=== PATIENT | female | born 1985 | race African-American/Black ===

== ENCOUNTER 2017-10-28 13:34 | Inpatient (IN) ==
[2017-10-28] MEDS ORDERED: cefTRIAXone 250 MG VIAL IV STA (14:03)
[2017-10-28] MEDS ORDERED: MORPHINE 2 MG/1 ML SYRINGE IV STA (14:04)
[2017-10-28] MEDS ORDERED: ONDANSETRON 4 MG/2 ML VIAL IV ONE (14:04)
[2017-10-28] MEDS ORDERED: cefTRIAXone 1,000 MG VIAL ONE (14:08)
[2017-10-28] MEDS ORDERED: ONDANSETRON 4 MG/2 ML VIAL ONE (14:08)
[2017-10-28] MEDS ORDERED: MORPHINE 10 MG/1 ML VIAL ONE (14:09)
[2017-10-28 15:25] LABS: Basophils % 0.1 % (0.0-0.8); Eosinophils % 0.2 % (0.00-10.9); Hematocrit 35.4 VOL% (35.7-47.0); Immature Granulocytes % 0.5 %; Immature Granulocytes Absolute 0.06 #; Lymphocytes % 8.3 % (21.3-54.2); Mean Corpuscular HGB Conc 31.1 GM/DL (32-36); Mean Corpuscular Hemoglobin 22 PG (27-34); Mean Corpuscular Volume 71.7 FL (87-102); Mean Platelet Volume 10.8 FL (9.6-12.0); Monocytes # 0.6 10*3/uL (0.11-0.8); Monocytes % 5.1 % (1.7-12.7); Neutrophils # 10.5 10*3/uL (1.4-7.4); Neutrophils % 85.8 % (38.7-73.9); Platelet Count 404 T/CUMM (130-400); Red Blood Count 4.94 MC/CUMM (3.8-5.5); Red Cell Distribution Width 16.3 % (9.3-17.3); White Blood Count 12.3 T/CUMM (4-12)
[2017-10-28] MEDS ORDERED: ONDANSETRON 4 MG/2 ML VIAL IV PRN (15:41)
[2017-10-28] MEDS ORDERED: ZALEPLON 5 MG CAPSULE PO PRN (15:41)
[2017-10-28] MEDS ORDERED: BISACODYL 5 MG TABLET PO PRN (15:41)
[2017-10-28 15:48] LABS: Calcium 8.8 MG/DL (8.5-10.1); Osmolality,Calculated 276.4 MOS/KG (273-304); Potassium 3.6 MMOL/L (3.5-5.1)
[2017-10-28] MEDS ORDERED: AMPICILLIN/SULBACTAM 1,500 MG VIAL ONE (17:58)
[2017-10-28] MEDS: AMPICILLIN/SULBACTAM 1,500 MG in SODIUM CHLORIDE 0.9% 100 ML IV SCH (18:14)
[2017-10-28] MEDS: ENOXAPARIN 40 MG/0.4 ML SYRINGE SUBCUT SCH (20:36)
[2017-10-28] MEDS: MORPHINE 2 MG/1 ML SYRINGE IV PRN (20:36)
[2017-10-28] MEDS: DEXTROSE 5% NACL 0.45% 1,000 ML IV SCH (20:39)
[2017-10-28] MEDS: CLINDAMYCIN INJ 900 MG in PREMIX 1 EACH IV SCH (21:22)
[2017-10-29] MEDS: AMPICILLIN/SULBACTAM 1,500 MG in SODIUM CHLORIDE 0.9% 100 ML IV SCH ×3 (00:24→18:24)
[2017-10-29] MEDS ORDERED: ETOMIDATE 20 MG/10 ML VIAL IV ONE (00:26)
[2017-10-29] MEDS ORDERED: fentaNYL 100 MCG/2 ML VIAL IV ONE ×2 (00:26→01:29)
[2017-10-29] MEDS ORDERED: SUCCINYLCHOLINE 200 MG/10 ML VIAL IV ONE (00:27)
[2017-10-29] MEDS: DEXTROSE 5% NACL 0.45% 1,000 ML IV SCH ×4 (00:27→18:25)
[2017-10-29] MEDS ORDERED: PROPOFOL 1,000 MG/100 ML BOTTLE IV ONE (00:49)
[2017-10-29] MEDS: PROPOFOL 1,000 MG/100 ML BOTTLE IV SCH ×5 (00:51→13:51)
[2017-10-29] MEDS ORDERED: MIDAZOLAM 2 MG/2 ML VIAL IV ONE (00:58)
[2017-10-29] MEDS ORDERED: MIDAZOLAM 10 MG/2 ML VIAL ONE (00:59)
[2017-10-29] MEDS ORDERED: methylPREDNISolone SOD SUC 125 MG/2 ML VIAL IV ONE (01:29)
[2017-10-29] MEDS ORDERED: diphenhydrAMINE 50 MG/1 ML VIAL IV ONE (01:29)
[2017-10-29] MEDS ORDERED: LINEZOLID INJ 600 MG in PREMIX 1 EACH IV SCH (01:29)
[2017-10-29] MEDS ORDERED: ALBUTEROL/IPRATROPIUM 3 ML NEB RESP TX PRN (01:29)
[2017-10-29] MEDS: ACETAMINOPHEN 325 MG TABLET PO PRN (02:23)
[2017-10-29] MEDS: fentaNYL INJ 1,250 MCG in SODIUM CHLORIDE 0.9% 225 ML IV SCH ×2 (02:37→18:34)
[2017-10-29] MEDS: ALBUTEROL/IPRATROPIUM 3 ML NEB RESP TX SCH ×4 (03:55→19:38)
[2017-10-29 04:43] LABS: ABG Base Excess -0.5 MMOL/L (-2.5-2.5); ABG Oxygen Saturation 99.9 % (95-100); ABG PCO2 35.9 MM HG (35-48); ABG PH 7.422 (7.35-7.45); ABG TCO2 20.1 MMOL/L (23-27)
[2017-10-29] MEDS ORDERED: methylPREDNISolone SOD SUC 40 MG/1 ML VIAL IV SCH (05:00)
[2017-10-29 05:39] LABS: Basophils % 0.1 % (0.0-0.8); Eosinophils % 0.1 % (0.00-10.9); Hematocrit 33.2 VOL% (35.7-47.0); Hemoglobin 10.2 GM/DL (12.0-16.0); Immature Granulocytes % 0.5 %; Immature Granulocytes Absolute 0.07 #; Lymphocytes # 0.8 10*3/uL (1.4-4.0); Lymphocytes % 5.6 % (21.3-54.2); Mean Corpuscular HGB Conc 30.7 GM/DL (32-36); Mean Corpuscular Hemoglobin 22 PG (27-34); Mean Corpuscular Volume 70.8 FL (87-102); Mean Platelet Volume 10.6 FL (9.6-12.0); Monocytes # 0.5 10*3/uL (0.11-0.8); Monocytes % 3.5 % (1.7-12.7); Neutrophils # 12.5 10*3/uL (1.4-7.4); Neutrophils % 90.2 % (38.7-73.9); Platelet Count 374 T/CUMM (130-400); Red Blood Count 4.69 MC/CUMM (3.8-5.5); Red Cell Distribution Width 16.1 % (9.3-17.3); White Blood Count 13.9 T/CUMM (4-12)
[2017-10-29 05:57] LABS: Albumin 3.1 G/DL (3.4-5.0); Bilirubin,Total 1.5 MG/DL (0.2-1.0); Calcium 8.6 MG/DL (8.5-10.1); Magnesium 2.1 MG/DL (1.8-2.4); Osmolality,Calculated 277.7 MOS/KG (273-304); Potassium 3.7 MMOL/L (3.5-5.1); Total Protein 6.3 G/DL (6.4-8.3)
[2017-10-29 06:15] LABS: Elliptocytes Few; Giant Platelets Few; Hypochromasia 1+; Platelet Estimate Adequate
[2017-10-29 06:44] LABS: Lactic Acid 0.8 MMOL/L (0.4-2.0)
[2017-10-29] MEDS: CLINDAMYCIN INJ 900 MG in PREMIX 1 EACH IV SCH ×3 (06:56→22:06)
[2017-10-29] MEDS ORDERED: DEXTROSE 50% 25 GM/50 ML VIAL IV PRN (08:07)
[2017-10-29] MEDS ORDERED: GLUCAGON 1 MG VIAL IM PRN (08:07)
[2017-10-29] MEDS: INSULIN REGULAR 100 UNIT/ML SUBCUT SCH ×2 (11:30→18:25)
[2017-10-29] MEDS: DEXAMETHASONE 4 MG/1 ML VIAL IV SCH ×2 (11:31→18:25)
[2017-10-29] MEDS ORDERED: LIDOCAINE 2%/EPI 20 ML VIAL ONE (19:55)
[2017-10-29] MEDS ORDERED: CHLORHEXIDINE 0.12% ORAL RINSE 60 ML BOTTLE SWISH/SPIT ONE (19:55)
[2017-10-29] MEDS ORDERED: MIDAZOLAM 100 MG in SODIUM CHLORIDE 0.9% 80 ML IV SCH (20:30)
[2017-10-29] MEDS ORDERED: MIDAZOLAM 2 MG/2 ML VIAL ONE (20:34)
[2017-10-29] MEDS ORDERED: SEVOFLURANE 1 UNIT/15 MINUTE INH ONE (20:34)
[2017-10-29] MEDS: ENOXAPARIN 40 MG/0.4 ML SYRINGE SUBCUT SCH (22:06)
[2017-10-30] MEDS: ALBUTEROL/IPRATROPIUM 3 ML NEB RESP TX SCH ×4 (00:43→21:00)
[2017-10-30] MEDS: DEXTROSE 5% NACL 0.45% 1,000 ML IV SCH ×2 (04:13→12:34)
[2017-10-30] MEDS: INSULIN REGULAR 100 UNIT/ML SUBCUT SCH ×4 (04:14→17:55)
[2017-10-30] MEDS: AMPICILLIN/SULBACTAM 1,500 MG in SODIUM CHLORIDE 0.9% 100 ML IV SCH ×3 (04:18→20:33)
[2017-10-30 04:21] LABS: Allen Test Positive; Pt O2 Delivery Device Ventilator
[2017-10-30 04:22] LABS: ABG Base Excess -0.6 MMOL/L (-2.5-2.5); ABG HCO3 23.9 MMOL/L (20-26); ABG PCO2 34.4 MM HG (35-48); ABG PH 7.436 (7.35-7.45)
[2017-10-30] MEDS: DEXAMETHASONE 4 MG/1 ML VIAL IV SCH ×2 (04:56→06:39)
[2017-10-30 05:09] LABS: Basophils % 0.1 % (0.0-0.8); Hematocrit 31.4 VOL% (35.7-47.0); Hemoglobin 9.9 GM/DL (12.0-16.0); Immature Granulocytes % 1.1 %; Immature Granulocytes Absolute 0.16 #; Lymphocytes # 0.7 10*3/uL (1.4-4.0); Lymphocytes % 4.8 % (21.3-54.2); Mean Corpuscular HGB Conc 31.5 GM/DL (32-36); Mean Corpuscular Hemoglobin 22 PG (27-34); Mean Corpuscular Volume 69.5 FL (87-102); Mean Platelet Volume 11.4 FL (9.6-12.0); Monocytes # 0.8 10*3/uL (0.11-0.8); Monocytes % 5.4 % (1.7-12.7); Neutrophils # 12.8 10*3/uL (1.4-7.4); Neutrophils % 88.6 % (38.7-73.9); Platelet Count 411 T/CUMM (130-400); Red Blood Count 4.52 MC/CUMM (3.8-5.5); Red Cell Distribution Width 16.6 % (9.3-17.3); White Blood Count 14.5 T/CUMM (4-12)
[2017-10-30 05:42] LABS: Calcium 8.6 MG/DL (8.5-10.1); Osmolality,Calculated 282.1 MOS/KG (273-304); Potassium 4.1 MMOL/L (3.5-5.1)
[2017-10-30 05:48] LABS: Burr Cells Slight; Giant Platelets Few; Hypochromasia 1+; Lymphocytes 10 % (20-55); Ovalocytes Slight; Platelet Estimate Increased; Segmented Neutrophils 87 % (50-85); Total Cells Counted 100
[2017-10-30] MEDS: DORNASE ALFA 2.5 MG/2.5 ML VIAL RESP TX SCH ×3 (06:18→21:00)
[2017-10-30] MEDS: CLINDAMYCIN INJ 900 MG in PREMIX 1 EACH IV SCH ×3 (06:38→21:47)
[2017-10-30] MEDS: MORPHINE 2 MG/1 ML SYRINGE IV PRN (10:09)
[2017-10-30 13:17] LABS: ABG HCO3 24.5 MMOL/L (20-26); ABG Oxygen Saturation 98.6 % (95-100); ABG PCO2 38.2 MM HG (35-48); ABG PH 7.413 (7.35-7.45); ABG TCO2 22.2 MMOL/L (23-27)
[2017-10-30] MEDS: fentaNYL INJ 1,250 MCG in SODIUM CHLORIDE 0.9% 225 ML IV SCH (14:07)
[2017-10-30] MEDS: ENOXAPARIN 40 MG/0.4 ML SYRINGE SUBCUT SCH (20:33)
[2017-10-31] MEDS: INSULIN REGULAR 100 UNIT/ML SUBCUT SCH ×5 (00:33→23:30)
[2017-10-31] MEDS: MORPHINE 2 MG/1 ML SYRINGE IV PRN (00:55)
[2017-10-31] MEDS: DEXTROSE 5% NACL 0.45% 1,000 ML IV SCH ×2 (01:04)
[2017-10-31 05:10] LABS: Basophils % 0.1 % (0.0-0.8); Hematocrit 30.5 VOL% (35.7-47.0); Hemoglobin 9.5 GM/DL (12.0-16.0); Immature Granulocytes % 0.9 %; Immature Granulocytes Absolute 0.12 #; Lymphocytes # 2.4 10*3/uL (1.4-4.0); Lymphocytes % 17.4 % (21.3-54.2); Mean Corpuscular HGB Conc 31.1 GM/DL (32-36); Mean Corpuscular Hemoglobin 22 PG (27-34); Mean Corpuscular Volume 70.6 FL (87-102); Mean Platelet Volume 11.5 FL (9.6-12.0); Monocytes # 0.7 10*3/uL (0.11-0.8); Monocytes % 4.9 % (1.7-12.7); Neutrophils # 10.6 10*3/uL (1.4-7.4); Neutrophils % 76.7 % (38.7-73.9); Platelet Count 439 T/CUMM (130-400); Red Blood Count 4.32 MC/CUMM (3.8-5.5); Red Cell Distribution Width 16.1 % (9.3-17.3); White Blood Count 13.9 T/CUMM (4-12)
[2017-10-31] MEDS: AMPICILLIN/SULBACTAM 1,500 MG in SODIUM CHLORIDE 0.9% 100 ML IV SCH ×3 (05:21→20:32)
[2017-10-31 05:39] LABS: Calcium 8.1 MG/DL (8.5-10.1); Osmolality,Calculated 282.1 MOS/KG (273-304); Potassium 3.8 MMOL/L (3.5-5.1)
[2017-10-31 06:19] LABS: Hypochromasia 1+; Lymphocytes 14 % (20-55); Segmented Neutrophils 83 % (50-85); Total Cells Counted 100
[2017-10-31 06:20] LABS: Microcytosis 1+; Ovalocytes Slight; Platelet Estimate Increased
[2017-10-31] MEDS: CLINDAMYCIN INJ 900 MG in PREMIX 1 EACH IV SCH ×3 (07:18→21:42)
[2017-10-31] MEDS: DORNASE ALFA 2.5 MG/2.5 ML VIAL RESP TX SCH ×2 (07:19→20:20)
[2017-10-31] MEDS: ALBUTEROL/IPRATROPIUM 3 ML NEB RESP TX SCH (07:19)
[2017-10-31] MEDS: ACETAMINOPHEN 325 MG TABLET PO PRN (16:55)
[2017-10-31] MEDS: ENOXAPARIN 40 MG/0.4 ML SYRINGE SUBCUT SCH (20:35)
[2017-11-01] MEDS: AMPICILLIN/SULBACTAM 1,500 MG in SODIUM CHLORIDE 0.9% 100 ML IV SCH (03:06)
[2017-11-01 04:58] LABS: Basophils % 0.1 % (0.0-0.8); Eosinophils # 0.1 10*3/uL (0.0-0.87); Eosinophils % 0.8 % (0.00-10.9); Hematocrit 29.9 VOL% (35.7-47.0); Hemoglobin 9.3 GM/DL (12.0-16.0); Immature Granulocytes % 1.2 %; Immature Granulocytes Absolute 0.12 #; Lymphocytes # 3.4 10*3/uL (1.4-4.0); Lymphocytes % 35.1 % (21.3-54.2); Mean Corpuscular HGB Conc 31.1 GM/DL (32-36); Mean Corpuscular Hemoglobin 22 PG (27-34); Mean Corpuscular Volume 70.7 FL (87-102); Mean Platelet Volume 11.2 FL (9.6-12.0); Monocytes # 0.6 10*3/uL (0.11-0.8); Monocytes % 5.8 % (1.7-12.7); Neutrophils # 5.5 10*3/uL (1.4-7.4); Platelet Count 435 T/CUMM (130-400); Red Blood Count 4.23 MC/CUMM (3.8-5.5); Red Cell Distribution Width 16.1 % (9.3-17.3); White Blood Count 9.7 T/CUMM (4-12)
[2017-11-01] MEDS: CLINDAMYCIN INJ 900 MG in PREMIX 1 EACH IV SCH (05:18)
[2017-11-01] MEDS: INSULIN REGULAR 100 UNIT/ML SUBCUT SCH (06:17)
[2017-11-01] MEDS: DORNASE ALFA 2.5 MG/2.5 ML VIAL RESP TX SCH (08:37)
[2017-11-01 08:40] VITALS: BP 139/100
== END 2017-11-01 11:34 | disposition home or self-care (01) | DRG 137 ==
LOC: N.ED 13:34 → SUATTDRO 15:41 → N.EDINP 15:41 → N.5E 18:57 → N.CC 10-29 00:37 → N.3E 10-31 09:39
PROVIDERS: ADMIT Internal Medicine Cardiovascular Disease; ATTEND Internal Medicine

== ENCOUNTER 2020-11-18 11:18 | Inpatient (IN) ==
[2020-11-18] MEDS ORDERED: SODIUM CHLORIDE 0.9% 1,000 ML IV STA (11:47)
[2020-11-18 11:55] LABS: Basophils % 0.3 % (0.0-0.8); Eosinophils # 0.1 10*3/uL (0.0-0.87); Eosinophils % 1.9 % (0.00-10.9); Hematocrit 43.3 VOL% (35.7-47.0); Hemoglobin 13.3 GM/DL (12.0-16.0); Immature Granulocytes % 0.4 %; Immature Granulocytes Absolute 0.03 #; Lymphocytes # 1.6 10*3/uL (1.4-4.0); Lymphocytes % 21.6 % (21.3-54.2); Mean Corpuscular HGB Conc 30.7 GM/DL (32-36); Mean Corpuscular Volume 74.3 FL (87-102); Mean Platelet Volume 11.9 FL (9.6-12.0); Monocytes % 4.5 % (1.7-12.7); Neutrophils % 71.3 % (38.7-73.9); Platelet Count 420 T/CUMM (130-400); Red Blood Count 5.83 MC/CUMM (3.8-5.5); Red Cell Distribution Width 16.1 % (9.3-17.3); White Blood Count 7.5 T/CUMM (4-12)
[2020-11-18 12:23] LABS: Albumin 3.5 G/DL (3.4-5.0); Bilirubin,Total 0.4 MG/DL (0.2-1.0); Calcium 9.1 MG/DL (8.5-10.1); Osmolality,Calculated 278.5 MOS/KG (273-304); Potassium 4.1 MMOL/L (3.5-5.1); Total Protein 7.6 G/DL (6.4-8.3)
[2020-11-18 12:34] LABS: Troponin I 0.067 NG/ML (0.00-0.045)
[2020-11-18] MEDS ORDERED: HEPARIN 1,000 UNIT/1 ML VIAL IV STA (13:59)
[2020-11-18] MEDS ORDERED: HEPARIN 5,000 UNIT/1 ML VIAL IV STA (14:11)
[2020-11-18 14:15] LABS: PT Patient Result 11.2 SECS (9.8-11.9)
[2020-11-18] MEDS ORDERED: MAGNESIUM SULF RIDER 2 GM in PREMIX 1 EACH IV PRN (14:23)
[2020-11-18] MEDS ORDERED: POTASSIUM CHLORIDE RIDER 10 MEQ in PREMIX 1 EACH IV PRN (14:23)
[2020-11-18] MEDS ORDERED: DIAZEPAM 5 MG TABLET PO ONE (14:23)
[2020-11-18] MEDS ORDERED: diphenhydrAMINE CAP 25 MG CAPSULE PO ONE (14:23)
[2020-11-18] MEDS ORDERED: LIDOCAINE 1% 20 ML VIAL ONE ×2 (16:38→17:02)
[2020-11-18] MEDS ORDERED: HEPARIN/NACL 0.9% 2 UNITS/ML 500 ML IV ONE ×2 (16:38→17:02)
[2020-11-18] MEDS ORDERED: MIDAZOLAM 2 MG/2 ML VIAL ONE (16:38)
[2020-11-18] MEDS ORDERED: fentaNYL 100 MCG/2 ML VIAL ONE (16:38)
[2020-11-18] MEDS ORDERED: HEPARIN 5,000 UNIT/1 ML VIAL ONE (17:13)
[2020-11-18] MEDS ORDERED: DEXTROSE 50% 25 GM/50 ML VIAL IV PRN ×2 (17:50→18:07)
[2020-11-18] MEDS ORDERED: GLUCAGON 1 MG VIAL IM PRN ×2 (17:50→18:07)
[2020-11-18] MEDS ORDERED: ACETAMINOPHEN 325 MG TABLET PO PRN (17:50)
[2020-11-18] MEDS: RIVAROXABAN 15 MG TABLET PO SCH (18:22)
[2020-11-18] MEDS ORDERED: ZALEPLON 5 MG CAPSULE PO PRN (20:23)
[2020-11-18] MEDS: INSULIN LISPRO 100 UNIT/ML SUBCUT SCH (21:23)
[2020-11-18] MEDS: HYDROmorphone 2 MG/1 ML VIAL IV PRN (21:56)
[2020-11-19 01:12] LABS: Basophils % 0.2 % (0.0-0.8); Eosinophils # 0.1 10*3/uL (0.0-0.87); Eosinophils % 1.4 % (0.00-10.9); Hematocrit 35.9 VOL% (35.7-47.0); Hemoglobin 11.3 GM/DL (12.0-16.0); Immature Granulocytes % 0.6 %; Immature Granulocytes Absolute 0.05 #; Lymphocytes # 2.3 10*3/uL (1.4-4.0); Lymphocytes % 27.3 % (21.3-54.2); Mean Corpuscular HGB Conc 31.5 GM/DL (32-36); Mean Corpuscular Volume 73.7 FL (87-102); Mean Platelet Volume 11.6 FL (9.6-12.0); Monocytes % 5.6 % (1.7-12.7); Neutrophils % 64.9 % (38.7-73.9); Platelet Count 307 T/CUMM (130-400); Red Blood Count 4.87 MC/CUMM (3.8-5.5); Red Cell Distribution Width 15.8 % (9.3-17.3); White Blood Count 8.5 T/CUMM (4-12)
[2020-11-19 02:10] LABS: Calcium 8.5 MG/DL (8.5-10.1); Osmolality,Calculated 276.7 MOS/KG (273-304); Potassium 3.8 MMOL/L (3.5-5.1)
[2020-11-19] MEDS: INSULIN LISPRO 100 UNIT/ML SUBCUT SCH ×4 (07:20→21:11)
[2020-11-19] MEDS: RIVAROXABAN 15 MG TABLET PO SCH ×2 (08:35→17:05)
[2020-11-19] MEDS: PANTOPRAZOLE 40 MG TABLET PO SCH (08:35)
[2020-11-19] MEDS: METOPROLOL TARTRATE 25 MG TABLET PO SCH ×2 (09:05→21:29)
[2020-11-19] MEDS: HYDROmorphone 2 MG/1 ML VIAL IV PRN (21:29)
[2020-11-20] MEDS ORDERED: ONDANSETRON 4 MG/2 ML VIAL ONE (02:12)
[2020-11-20] MEDS ORDERED: ONDANSETRON 4 MG/2 ML VIAL IV PRN (02:14)
[2020-11-20 02:25] LABS: Basophils % 0.1 % (0.0-0.8); Eosinophils # 0.2 10*3/uL (0.0-0.87); Eosinophils % 1.9 % (0.00-10.9); Hematocrit 32.2 VOL% (35.7-47.0); Hemoglobin 10.2 GM/DL (12.0-16.0); Immature Granulocytes % 0.4 %; Immature Granulocytes Absolute 0.04 #; Lymphocytes # 4.2 10*3/uL (1.4-4.0); Mean Corpuscular HGB Conc 31.7 GM/DL (32-36); Mean Corpuscular Volume 73.5 FL (87-102); Monocytes % 4.2 % (1.7-12.7); Neutrophils % 48.4 % (38.7-73.9); Platelet Count 365 T/CUMM (130-400); Red Blood Count 4.38 MC/CUMM (3.8-5.5); Red Cell Distribution Width 15.3 % (9.3-17.3); White Blood Count 9.3 T/CUMM (4-12)
[2020-11-20 02:45] LABS: Osmolality,Calculated 274.8 MOS/KG (273-304); Potassium 3.7 MMOL/L (3.5-5.1)
[2020-11-20] MEDS: INSULIN LISPRO 100 UNIT/ML SUBCUT SCH (07:30)
[2020-11-20] MEDS: PANTOPRAZOLE 40 MG TABLET PO SCH (09:36)
[2020-11-20] MEDS: RIVAROXABAN 15 MG TABLET PO SCH ×2 (09:36→16:48)
[2020-11-20] MEDS: METOPROLOL TARTRATE 25 MG TABLET PO SCH ×2 (09:43→21:54)
[2020-11-20 14:31] LABS: DRVVT Screen Ratio 1.39 ratio (<1.20); INR 1.9 (0.9-1.1)
[2020-11-21 05:52] LABS: Basophils % 0.4 % (0.0-0.8); Eosinophils # 0.2 10*3/uL (0.0-0.87); Eosinophils % 2.6 % (0.00-10.9); Hematocrit 30.9 VOL% (35.7-47.0); Hemoglobin 9.5 GM/DL (12.0-16.0); Immature Granulocytes % 0.9 %; Immature Granulocytes Absolute 0.06 #; Lymphocytes # 3.2 10*3/uL (1.4-4.0); Lymphocytes % 46.8 % (21.3-54.2); Mean Corpuscular HGB Conc 30.7 GM/DL (32-36); Mean Corpuscular Volume 74.3 FL (87-102); Mean Platelet Volume 11.5 FL (9.6-12.0); Monocytes % 5.1 % (1.7-12.7); Neutrophils % 44.2 % (38.7-73.9); Platelet Count 361 T/CUMM (130-400); Red Blood Count 4.16 MC/CUMM (3.8-5.5); Red Cell Distribution Width 15.5 % (9.3-17.3); White Blood Count 6.9 T/CUMM (4-12)
[2020-11-21 06:20] LABS: Eosinophils 3 % (0-10); Hypochromasia 1+; Lymphocytes 48 % (20-55); Segmented Neutrophils 45 % (50-85); Total Cells Counted 100
[2020-11-21 06:21] LABS: Microcytosis 1+; Ovalocytes Few; Platelet Estimate Normal
[2020-11-21 06:28] LABS: Calcium 8.5 MG/DL (8.5-10.1); Osmolality,Calculated 276.5 MOS/KG (273-304); Potassium 4.1 MMOL/L (3.5-5.1)
[2020-11-21] MEDS: METOPROLOL TARTRATE 25 MG TABLET PO SCH (08:41)
[2020-11-21] MEDS: PANTOPRAZOLE 40 MG TABLET PO SCH (08:41)
[2020-11-21] MEDS: RIVAROXABAN 15 MG TABLET PO SCH (08:41)
[2020-11-21] MEDS ORDERED: DIAZEPAM 5 MG TABLET PO ONE (09:00)
[2020-11-21 11:51] VITALS: BP 111/66
[2020-11-21 12:01] LABS: Antinuclear Ab, S 0.6 U
[2020-11-22 12:05] LABS: Protein C Activity Plasma 99 % (70 - 150)
[2020-11-22 19:06] LABS: Protein S Activity Plasma 144 % (50 - 160)
[2020-11-27 11:01] LABS: Homocysteine 13.5 nmol/mL (4.6-12.5)
[2020-11-27 16:26] LABS: DRVVT Confirmation 0.67 ratio (<1.20); PT Mix 1:1 (Mayo Reflex) 15.4 sec (9.4 - 12.5); Reptilase Time, P 19.5 sec; Thrombin Time (Bovine), P > 300.0 sec
[2020-11-29 11:06] LABS: PT PCR Specimen Whole Blood; Prothrombin (F2) G20210A Varia Negative
[2020-11-29 18:41] LABS: FACV Specimen Whole Blood
== END 2020-11-21 13:40 | disposition home or self-care (01) | DRG 134 ==
LOC: N.ED 11:18 → N.ICU 16:26 → SUATTDRO 17:48 → N.TELEN 11-20 16:37
PROVIDERS: ADMIT Family Medicine; ATTEND Internal Medicine